=== PATIENT | male | born 2000 | race Caucasian/White ===

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

== ENCOUNTER → 2021-04-22 | Outpatient (REF) | payer OTHER ==
[~2021-04-22] MED LIST: IBUP-1022 PO; RISP-9; SERT-138
== END ==
LOC: M LAB REF 16:51
PROVIDERS: ATTEND Physician Assistant
DX: J02.9 Acute pharyngitis, unspecified (principal)

== ENCOUNTER 2021-06-28 21:48 | Emergency (ER) | payer OTHER ==
[~2021-06-28] VITALS: Ht 182.9 cm; Wt 120.0 kg
[2021-06-28 22:29] LABS: HEMATOCRIT 48.5 % (42.0-52.0); HEMOGLOBIN 16.5 g/dl (13.5-17.5); MEAN CORPUSCULAR HEMOGLOBIN 30.7 pg (27.0-33.0); MEAN CORPUSCULAR VOLUME 90.1 fl (80.0-96.0); PLATELET COUNT, AUTOMATED 235 10^3/uL (150-450); RED BLOOD COUNT 5.38 10^6/uL (4.30-6.10); WHITE BLOOD COUNT 8.7 10^3/uL (4.0-10.0)
[2021-06-28 23:03] LABS: RSV AMPLIFICATION NEGATIVE (NEGATIVE)
[2021-06-28 23:04] LABS: AMPHETAMINES LEVEL URINE NEGATIVE (NEGATIVE); BARBITURATES URINE NEGATIVE (NEGATIVE); BENZODIAZEPINES URINE NEGATIVE (NEGATIVE); CANNABINOIDS URINE POSITIVE (NEGATIVE); COCAINE METABOLITE URINE NEGATIVE (NEGATIVE); METHADONE URINE NEGATIVE (NEGATIVE); OPIATES URINE NEGATIVE (NEGATIVE); PHENCYCLIDINE URINE NEGATIVE (NEGATIVE)
[2021-06-28 23:13] LABS: ACETAMINOPHEN LEVEL < 2.0 UG/ML (10.0-30.0); ALBUMIN 4.4 GM/DL (3.2-5.2); ALT/SGPT 56 U/L (12-78); BILIRUBIN,DIRECT < 0.1 MG/DL (0.0-0.2); BILIRUBIN,TOTAL 0.5 MG/DL (0.2-1.0); BLOOD UREA NITROGEN 13 MG/DL (7-18); CALCIUM LEVEL 9.2 MG/DL (8.5-10.1); CARBON DIOXIDE LEVEL 28 MEQ/L (21-32); CHLORIDE LEVEL 107 MEQ/L (98-107); CREATININE FOR GFR 1.12 MG/DL (0.70-1.30); ETHYL ALCOHOL (ETHANOL) < 0.003 % (0.000-0.010); GLOMERULAR FILTRATION RATE > 60.0 (>60); GLUCOSE, FASTING 81 MG/DL (70-100); POTASSIUM SERUM 3.9 MEQ/L (3.5-5.1); SALICYLATE LEVEL < 1.7 MG/DL (5.0-30.0); SODIUM LEVEL 139 MEQ/L (136-145)
[2021-06-29 06:23] VITALS: BP 140/82
== END 2021-06-29 06:46 | disposition home or self-care (01) ==
LOC: M ED 21:48
DX: F43.20 Adjustment disorder, unspecified (principal); F31.9 Bipolar disorder, unspecified; F12.10 Cannabis abuse, uncomplicated; F17.200 Nicotine dependence, unspecified, uncomplicated; Z63.32 Other absence of family member; Z79.899 Other long term (current) drug therapy; Z88.8 Allergy status to other drugs, medicaments and biological substances

== ENCOUNTER 2021-09-19 01:01 | Emergency (ER) | payer OTHER ==
[~2021-09-19] VITALS: Ht 182.9 cm; Wt 132.3 kg
[2021-09-19 01:07] VITALS: BP 138/79
[2021-09-19] MEDS ORDERED: ALBU8.5H (01:07)
== END 2021-09-19 03:04 | disposition left against medical advice (07) ==
LOC: M ED 01:01
DX: Z53.21 Procedure and treatment not carried out due to patient leaving prior to being seen by health care provider (principal)

== ENCOUNTER 2021-11-03 04:22 | Emergency (ER) | payer OTHER ==
[~2021-11-03] VITALS: Ht 182.9 cm; Wt 121.1 kg
[~2021-11-03 04:22] MED LIST changes: +ALBU8.5H
[2021-11-03 04:23] VITALS: BP 144/71
== END 2021-11-03 04:56 | disposition left against medical advice (07) ==
LOC: M ED 04:22
DX: Z53.29 Procedure and treatment not carried out because of patient's decision for other reasons (principal)

== ENCOUNTER 2021-11-08 12:13 | Inpatient (IN) | payer OTHER ==
[~2021-11-08] VITALS: Ht 182.9 cm; Wt 116.9 kg
[~2021-11-08 12:13] MED LIST changes: -ALBU8.5H; +ALBU8.5H INH
[2021-11-08] MEDS ORDERED: PRED20TA PO (12:33)
[2021-11-08] MEDS ORDERED: AZIT-12 PO (12:33)
[2021-11-08] MEDS ORDERED: COMBIVENT RESPIMAT 100-20MCG INHALER 4GM INH STA (13:26)
[2021-11-08] MEDS ORDERED: ISOVUE-370 76% 100ML VIAL As Ordered ONE (13:52)
[2021-11-08 13:56] LABS: BASO # 0.1 10^3/uL (0.0-0.2); EOS # 0.1 10^3/uL (0.0-0.5); HEMATOCRIT 45.3 % (42.0-52.0); HEMOGLOBIN 15.6 g/dl (13.5-17.5); LYMPH # 0.2 10^3/uL (1.5-5.0); LYMPH % 1.9 % (24.0-44.0); MEAN CORPUSCULAR HEMOGLOBIN 31.1 pg (27.0-33.0); MEAN CORPUSCULAR HGB CONC 34.4 g/dl (32.0-36.5); MEAN CORPUSCULAR VOLUME 90.2 fl (80.0-96.0); MONO # 0.2 10^3/uL (0.0-0.8); MONO % 2.3 % (2.0-8.0); NEUTROPHILS # 9.8 10^3/uL (1.5-8.5); NEUTROPHILS % 93.2 % (36.0-66.0); PLATELET COUNT, AUTOMATED 244 10^3/uL (150-450); RED BLOOD COUNT 5.02 10^6/uL (4.30-6.10); WHITE BLOOD COUNT 10.5 10^3/uL (4.0-10.0)
[2021-11-08 14:31] LABS: ALBUMIN 4.5 GM/DL (3.2-5.2); ALT/SGPT 44 U/L (12-78); BILIRUBIN,DIRECT 0.2 MG/DL (0.0-0.2); BILIRUBIN,TOTAL 0.7 MG/DL (0.2-1.0); BLOOD UREA NITROGEN 8 MG/DL (7-18); CARBON DIOXIDE LEVEL 26 MEQ/L (21-32); CHLORIDE LEVEL 107 MEQ/L (98-107); CREATININE FOR GFR 1.04 MG/DL (0.70-1.30); GLOMERULAR FILTRATION RATE > 60.0 (>60); GLUCOSE, FASTING 104 MG/DL (70-100); NT-PRO BNP 101 PG/ML (<125); POTASSIUM SERUM 4.3 MEQ/L (3.5-5.1); SODIUM LEVEL 139 MEQ/L (136-145); THYROID STIMULATING HORMONE 0.991 uIU/ML (0.358-3.740); THYROXINE (T4) 7.9 UG/DL (4.5-12.0); TOTAL PROTEIN 7.8 GM/DL (6.4-8.2)
[2021-11-08 14:48] LABS: MAGNESIUM LEVEL 2.2 MG/DL (1.8-2.4)
[2021-11-08] MEDS ORDERED: methylPREDNISolone 40MG 1ML VIAL IV ONE (15:10)
[2021-11-08] MEDS ORDERED: MAG SULF 1GM/100ML (MAG RUN) 1 GM in IV 1 EA IV ONE (15:25)
[2021-11-08] MEDS ORDERED: HOME MED LIST COMPLETE! XX SCH (17:50)
[2021-11-08] MEDS ORDERED: IPRATROPIUM 0.5MG/ALBUTEROL 2.5MG INH SOL UD 3ML (DUONEB) NEB PRN (18:20)
[2021-11-08] MEDS: ACETAMINOPHEN 500 MG TAB PO PRN (19:51)
[2021-11-08 20:20] VITALS: BP 148/79
[2021-11-08 21:00] VITALS: O2SAT 95
[2021-11-08 23:48] VITALS: BP 131/70
[2021-11-09] VITALS (13 sets, daily range): BP systolic 125–138; BP diastolic 60–70; O2SAT 89–96
[2021-11-09] MEDS: ACETAMINOPHEN 500 MG TAB PO PRN ×2 (03:31→17:18)
[2021-11-09] MEDS: predniSONE 20 MG TAB PO SCH (08:01)
[2021-11-09] MEDS ORDERED: INFLUENZA QUADRIVALENT PF VACCINE 0.5ML SYRINGE IM ONE (09:00)
[2021-11-09] MEDS: ADVAIR HFA 115/21MCG INHALER INH SCH (19:02)
[2021-11-10 04:00] VITALS: BP 135/66
[2021-11-10 06:03] LABS: HEMATOCRIT 45.5 % (42.0-52.0); HEMOGLOBIN 15.1 g/dl (13.5-17.5); MEAN CORPUSCULAR HEMOGLOBIN 30.9 pg (27.0-33.0); MEAN CORPUSCULAR HGB CONC 33.2 g/dl (32.0-36.5); MEAN CORPUSCULAR VOLUME 93.2 fl (80.0-96.0); PLATELET COUNT, AUTOMATED 205 10^3/uL (150-450); RED BLOOD COUNT 4.88 10^6/uL (4.30-6.10); WHITE BLOOD COUNT 5.7 10^3/uL (4.0-10.0)
[2021-11-10 06:31] LABS: BLOOD UREA NITROGEN 14 MG/DL (7-18); CALCIUM LEVEL 9.1 MG/DL (8.5-10.1); CARBON DIOXIDE LEVEL 26 MEQ/L (21-32); CHLORIDE LEVEL 105 MEQ/L (98-107); CREATININE FOR GFR 1.04 MG/DL (0.70-1.30); GLOMERULAR FILTRATION RATE > 60.0 (>60); GLUCOSE, FASTING 98 MG/DL (70-100); POTASSIUM SERUM 3.9 MEQ/L (3.5-5.1); SODIUM LEVEL 139 MEQ/L (136-145)
[2021-11-10] MEDS ORDERED: CETI-14 PO (06:45)
[2021-11-10] MEDS: ADVAIR HFA 115/21MCG INHALER INH SCH (07:07)
[2021-11-10 08:00] VITALS: BP 122/57
[2021-11-10] MEDS: predniSONE 20 MG TAB PO SCH (09:34)
[2021-11-10] MEDS ORDERED: ADVA115A INH (11:45)
== END 2021-11-10 14:09 | disposition home or self-care (01) | DRG 113 ==
LOC: M ED 12:13 → M ED INP 18:16 → M PCU 20:05
PROVIDERS: ADMIT Family Medicine; ATTEND Family Medicine
DX: J11.1 Influenza due to unidentified influenza virus with other respiratory manifestations (principal); J45.901 Unspecified asthma with (acute) exacerbation; F31.9 Bipolar disorder, unspecified; F41.9 Anxiety disorder, unspecified; F32.A Depression, unspecified; Z88.8 Allergy status to other drugs, medicaments and biological substances; F17.200 Nicotine dependence, unspecified, uncomplicated

== ENCOUNTER 2022-02-18 17:08 | Emergency (ER) | payer OTHER ==
[~2022-02-18] VITALS: Ht 182.9 cm; Wt 121.4 kg
[~2022-02-18 17:08] MED LIST changes: +ADVA115A INH; +AZIT-12 PO; +CETI-14 PO; +PRED20TA PO
[2022-02-18 17:58] LABS: BASO # 0.2 10^3/uL (0.0-0.2); BASO % 1.4 % (0.0-1.0); EOS # 1.6 10^3/uL (0.0-0.5); EOS % 15.4 % (0.0-3.0); HEMATOCRIT 47.5 % (42.0-52.0); HEMOGLOBIN 15.9 g/dl (13.5-17.5); LYMPH # 1.8 10^3/uL (1.5-5.0); LYMPH % 17.3 % (24.0-44.0); MEAN CORPUSCULAR HEMOGLOBIN 31.3 pg (27.0-33.0); MEAN CORPUSCULAR HGB CONC 33.5 g/dl (32.0-36.5); MEAN CORPUSCULAR VOLUME 93.5 fl (80.0-96.0); MONO # 0.7 10^3/uL (0.0-0.8); MONO % 6.8 % (2.0-8.0); NEUTROPHILS # 6.1 10^3/uL (1.5-8.5); NEUTROPHILS % 58.1 % (36.0-66.0); PLATELET COUNT, AUTOMATED 245 10^3/uL (150-450); RED BLOOD COUNT 5.08 10^6/uL (4.30-6.10); WHITE BLOOD COUNT 10.4 10^3/uL (4.0-10.0)
[2022-02-18 18:27] LABS: ALBUMIN 4.3 GM/DL (3.2-5.2); ALT/SGPT 42 U/L (12-78); BILIRUBIN,DIRECT < 0.1 MG/DL (0.0-0.2); BILIRUBIN,TOTAL 0.5 MG/DL (0.2-1.0); BLOOD UREA NITROGEN 10 MG/DL (7-18); CALCIUM LEVEL 9.4 MG/DL (8.5-10.1); CARBON DIOXIDE LEVEL 28 MEQ/L (21-32); CHLORIDE LEVEL 104 MEQ/L (98-107); CREATININE FOR GFR 1.23 MG/DL (0.70-1.30); GLOMERULAR FILTRATION RATE > 60.0 (>60); GLUCOSE, FASTING 88 MG/DL (70-100); POTASSIUM SERUM 5.2 MEQ/L (3.5-5.1); SODIUM LEVEL 137 MEQ/L (136-145); TOTAL PROTEIN 7.4 GM/DL (6.4-8.2)
[2022-02-18] MEDS ORDERED: IPRATROPIUM 0.5MG/ALBUTEROL 2.5MG INH SOL UD 3ML (DUONEB) NEB ONE ×2 (20:25→21:15)
[2022-02-18] MEDS ORDERED: dexameTHASONE 20MG/5ML VIAL (J1100 PER 1MG) IV ONE (20:25)
[2022-02-18] MEDS ORDERED: NS 1,000 ML IV ONE (21:15)
[2022-02-18] MEDS ORDERED: ALBU2.5V10 NEB (23:12)
[2022-02-18] MEDS ORDERED: PRED20TA PO (23:13)
[2022-02-18 23:35] VITALS: BP 134/78
== END 2022-02-18 23:36 | disposition home or self-care (01) ==
LOC: M ED 20:32
DX: J45.901 Unspecified asthma with (acute) exacerbation (principal); E86.0 Dehydration; I10 Essential (primary) hypertension; F31.89 Other bipolar disorder; F41.9 Anxiety disorder, unspecified; Z87.891 Personal history of nicotine dependence; Z79.899 Other long term (current) drug therapy; Z88.8 Allergy status to other drugs, medicaments and biological substances
CPT/HCPCS: 71046; 80048; 80076; 85025; 85379; 87486; 87581; 87633; 87798; 93005; 94640; 96361; 96374; 99284; J1100

== ENCOUNTER 2022-06-10 01:16 | Emergency (ER) | payer OTHER ==
[~2022-06-10] VITALS: Ht 182.9 cm; Wt 114.7 kg
[2022-06-10 01:16] VITALS: BP 153/80
[~2022-06-10 01:16] MED LIST changes: +ALBU2.5V10 NEB
[2022-06-10] MEDS ORDERED: KETOROLAC 30 MG/ML 1ML VIAL IM ONE (01:35)
[2022-06-10] MEDS ORDERED: AUGMENTIN 875 MG TAB PO ONE (01:35)
[2022-06-10] MEDS ORDERED: AMOX875T2 PO (01:36)
[2022-06-10] MEDS ORDERED: IBUP-1022 PO (01:36)
[2022-06-10] MEDS ORDERED: IBUP80TA PO (01:41)
== END 2022-06-10 01:54 | disposition home or self-care (01) ==
LOC: M ED 01:16
DX: K02.9 Dental caries, unspecified (principal); K08.9 Disorder of teeth and supporting structures, unspecified; I10 Essential (primary) hypertension; J45.909 Unspecified asthma, uncomplicated; F31.9 Bipolar disorder, unspecified; F12.10 Cannabis abuse, uncomplicated; Z79.899 Other long term (current) drug therapy; Z88.8 Allergy status to other drugs, medicaments and biological substances
CPT/HCPCS: 96372; 99282; J1885

== ENCOUNTER 2023-08-10 21:47 | Emergency (ER) | payer OTHER ==
[~2023-08-10] VITALS: Ht 182.9 cm; Wt 113.6 kg
[~2023-08-10 21:47] MED LIST changes: +AMOX875T2 PO; +IBUP80TA PO
[2023-08-11] MEDS: IBUPROFEN 600MG TAB PO ONE (01:45)
[2023-08-11] MEDS ORDERED: IBUP-1022 PO (01:47)
[2023-08-11 01:59] VITALS: BP 134/60; TEMP 98.8; O2SAT 98
== END 2023-08-11 02:03 | disposition home or self-care (01) ==
LOC: M ED 21:47
DX: S76.812A Strain of other specified muscles, fascia and tendons at thigh level, left thigh, initial encounter (principal); X50.0XXA Overexertion from strenuous movement or load, initial encounter; Z88.8 Allergy status to other drugs, medicaments and biological substances; Y92.9 Unspecified place or not applicable; Y93.9 Activity, unspecified; Y99.0 Civilian activity done for income or pay